=== PATIENT | female | born 1995 | race Caucasian/White ===

== ENCOUNTER 2016-06-05 18:15 | Emergency (ER) | payer OTHER ==
--- NOTE | ~2016-06-05 | CR133 ---
[facility] A Service of [facility] & [facility] RADIOLOGY TEXT RESULTS PATIENT: STANLEY MAYFIELD LOCATION: [facility] : [birth year] UNIT #: [id number] AGE: [address]: Jeffrey Singleton MD SEX: F ORDER DR: [id number] [facility] [address] [place], [place] [address] [id number] MR#: [id number] Acc #: [id number] NAME: STANLEY MAYFIELD : 1995 SEX: F STUDY DATE/TIME: 06/05/2016 18:21 UNIT: [facility] ROOM: STUDY DESCRIPTION: CR Forearm 2 View Rt Attending Physician: Jeffrey Singleton M.D. Referring Physician: [facility] Ordering Physician: Jeffrey Singleton M.D. Primary Care Physician: [facility] MEDICAL IMAGING REPORT This report is preliminary unless electronic signature is present EXAM Right forearm 2 views 06/05/2016 HISTORY Right forearm pain status post fall 2 days ago. FINDINGS AP and lateral views of the forearm show no evidence of fracture or destructive bone lesion. No periosteal elevation is seen. No radiodense foreign bodies are noted. Adjacent soft tissue structures are normal. IMPRESSION Normal forearm. Dictated by... Philip Marin M.D. THIS IS AN ELECTRONICALLY VERIFIED REPORT Philip Marin M.D. at 06/06/2016 2:55 PM LEANNA/rubi TD: 06/06/2016 07:22 JOB #: [id number] MEDICAL IMAGING REPORT COPY
[2016-06-05 18:37] LABS: URINE SOURCE CLEAN CATCH
[2016-06-05 18:48] LABS: BASOPHIL% 0.6 % (0-2.5); EOSINOPHIL% 1.2 % (0.0-7.0); HEMATOCRIT 37.8 % (35.0-45.0); HEMOGLOBIN 12.9 gm/dL (12.0-16.0); LYMPHOCYTE# 1.5 X10e3 (1.0-3.5); LYMPHOCYTE% 36.8 % (17.0-45.0); MEAN CELL VOLUME 90.1 FL (83-96); MEAN CORPUSCULAR HEMOGLOBIN 30.7 PG (28-34); MEAN CORPUSCULAR HGB CONC 34.1 g/dL (30-36); MEAN PLATELET VOLUME 7.8 FL (6.5-11.5); MONOCYTE# 0.5 X10e3 (0-1.0); MONOCYTE% 13.3 % (3.0-12.0); NEUTROPHIL% 48.1 % (40-75); PLATELET COUNT 150 X10e3 (140-420); RED CELL DISTRIBUTION WIDTH 13.4 % (11.0-15.5); WHITE BLOOD COUNT 4.1 X10e3 (4.0-10.5)
[2016-06-05 18:50] LABS: DIFF IND NO
[2016-06-05 18:56] LABS: URINE APPEARANCE CLOUDY; URINE BLOOD 3+ (NEG); URINE COLOR DK YELLOW; URINE GLUCOSE NEG (NEG); URINE KETONE TRACE (NEG); URINE LEUKOCYTE ESTERASE TRACE (NEG); URINE NITRATE NEG (NEG); URINE PROTEIN 1+ (NEG); URINE SPECIFIC GRAVITY 1.031 (1.003-1.035)
[2016-06-05 19:00] LABS: CULTURE INDICATED? YES; URBCS1 AUWI 25-50 /[HPF] (0-2); URINE BACTERIA AUWI NEG (NEGATIVE); URINE BILIRUBIN NEG (NEG); URINE SQUAMOUS EPITHELIAL CELL MOD /[HPF]
[2016-06-05 19:06] LABS: U HYALINE CASTS AUWI 0-2 /[LPF]
[2016-06-05 19:07] LABS: AMPHETAMINE NEG (NEG); BARBITURATES NEG (NEG); BENZODIAZEPINES NEG (NEG); COCAINE NEG (NEG); MARIJUANA NEG (NEG); OPIATES NEG (NEG); TRICYCLIC ANTIDEPRESSANTS NEG (NEG); U METHADONE NEG (NEG)
[2016-06-05 19:24] LABS: ALBUMIN SERUM 4.4 g/dL (3.5-5.0); ALKALINE PHOSPHATASE 53 U/L (32-92); ALT (SGPT) 13 U/L (10-40); AST (SGOT) 25 U/L (10-42); BILIRUBIN, DIRECT 0.1 mg/dL (0.0-0.2); BILIRUBIN,INDIRECT 0.3 mg/dL (0.0-0.9); BILIRUBIN,TOTAL 0.4 mg/dL (0.2-2.0); BLOOD UREA NITROGEN 13 mg/dL (9-23); BUN/CREATININE RATIO 21.66; CALCIUM SERUM 8.6 mg/dL (8.4-10.2); CARBON DIOXIDE 27 mmol/L (22-31); CHLORIDE 101 mmol/L (100-111); CREATININE SERUM 0.6 mg/dL (0.6-1.4); GLOM FILT RATE Estimated ABOVE60 mL/min (>60); GLUCOSE FASTING 98 mg/dL (70-110); LIPASE 20 U/L (22-51); PROTEIN TOTAL SERUM 7.3 g/dL (6.0-8.3); SODIUM 137 mmol/L (135-145)
[2016-06-05 19:25] LABS: POTASSIUM 2.9 mmol/L (3.5-5.1)
== END 2016-06-05 20:59 | disposition home or self-care (01) ==
LOC: CED 18:15
PROVIDERS: Emergency Medicine
DX: E87.6 Hypokalemia (principal); M79.631 Pain in right forearm; Z88.0 Allergy status to penicillin; Z88.1 Allergy status to other antibiotic agents
CPT/HCPCS: 36415; 73090; 80048; 80076; 80307; 81003; 83690; 84703; 85025; 87086; 96365; 96375; 99284; J1885